=== PATIENT | male | born 1990 | race Caucasian/White ===

== ENCOUNTER 2024-11-06 18:02 | Emergency (ER) | payer BC, SELFPAY ==
--- NOTE | ~2024-11-06 | XR_ITS ---
CLINICAL HISTORY: lac to left hand 3rd digit 3 view left 3rd digit Comparison: None Findings: Laceration of the tip of the 3rd digit. Bones intact. No dislocations. No erosions. No radiopaque foreign body. IMPRESSION: 1. No acute fracture or radiopaque foreign body. This document has been electronically signed by: Kat Whiting MD on 11/06/2024 18:46:42
[2024-11-06 18:04] VITALS: BP 114/62; PULSE 63; RESP 18; TEMP 36.6; O2SAT 99; BMI 27.4
--- NOTE | 2024-11-06 20:18 | ED_ITS ---
HPI - Wound/Laceration General Chief Complaint: Wound/Laceration Stated Complaint: L hand middle finger lac Time Seen by Provider: 11/06/24 22:34 History of Present Illness ED Provider: Mayra SHARP narrative: The patient is a 34-year-old male who was slicing potatoes with a mandoline slicer this afternoon at around 16:00 when he accidentally sliced off the tip of the pad of his left middle finger. There has been persistent bleeding and he came to the emergency room. Related Data Allergies Allergy/AdvReac Type Severity Reaction Status Date / Time Penicillins [PCN] Allergy Unknown THROAT Unverified 11/06/24 18:18 CLOSES UP Review of Systems Review of Systems: Yes all other systems are reviewed and are negative PMFSH Social History Social History Advance Directives: No Advance Directives Information Provided: No Physical Exam Vital Signs: Vital Signs: Last Vital Signs Temp 98.2 F 11/06/24 23:48 Pulse 74 11/06/24 23:48 Resp 16 11/06/24 23:48 BP 116/72 11/06/24 23:48 Pulse Ox 96 11/06/24 23:48 O2 Del Method Room Air 11/06/24 23:48 BMI result Body Mass Index 27.4 Const: Other: The patient is awake and alert. He does not appear in acute distress. HEENT: Other: The face is unremarkable. Face is symmetrical. Mucous membranes moist. Eyes: General: appearance normal, both eyes and all related structures Neck: Neck: Yes normal visual inspection and Yes full ROM Resp: Effort & Inspection: normal respiratory effort Skin: Other: The patient has an injury to the pad of the distal left middle finger. The injury has the appearance of an avulsion of the skin. There was some oozing of blood. The area of the injury is less than 1 sq cm. Neuro: Other: The patient is awake and alert with a normal mental status. He has normal sensation and motor function of the left hand. Extrem: Other: There is a skin avulsion injury to the pad of the left distal middle finger which is oozing blood. The fingernail is not involved. Motor and sensory function of the finger is normal. The finger is neurovascularly intact Course Course Course Narrative: This is a Rapid Medical Examination (RME) performed by Ariana Foy PA-C in triage. Full HPI, ROS, assessment and treatment plan per primary provider in the Main ED. Hx: 34 yo male here for eval of laceration to left 3rd digit sustained while cutting potatos using a mandolin cutter. no thinners. unsure of tetanus status. PE/vitals: avulsion injury to tip of left third digit. wrapped in triage. Plan: xrs, tdap, ?repair Medications Administered Discontinued Medications Generic Name Dose Route Start Last Admin Trade Name Lay PRN Reason Stop Dose Admin Acetaminophen 975 mg 11/06/24 23:03 11/06/24 23:29 Acetaminophen 325 Mg Tablet PO 11/06/24 23:04 975 mg ONCE ONE Administration Ibuprofen 600 mg 11/06/24 23:03 11/06/24 23:30 Ibuprofen 600 Mg Tablet PO 11/06/24 23:04 600 mg ONCE ONE Administration Medical Decision Making Medical Decision Making [facility] Narrative: The patient is a 34-year-old male who sustained an injury to the tip of his left middle finger when slicing food with a mandoline food slicer. The area of the avulsed skin is close to but probably slightly less than 1 sq cm. As these wounds typically do the wound was continuously oozing blood. In order to achieve hemostasis I applied a finger tourniquet and cleaned the wound. I then applied Surgicel gauze to the tip of the finger. Over this I applied a nonstick pad and then wrapped the finger with gauze for a dressing. The finger tourniquet was kept on for about 10 minutes after application of the dressing. The patient was observed for about 20-30 minutes additionally. There was no evidence of bleeding through the dressing. The patient will be discharged with instructions to contact Orthopedics for evaluation by the hand surgery clinic. Wound care instructions were reviewed with the patient. Procedure note: Procedure indication: Bleeding control for fingertip avulsion injury Procedure details: The patient is left middle finger was examined. There was a dressing in place that was taken down. This revealed an avulsion type injury to the pad of the left distal finger with oozing blood. A finger tourniquet was applied over the wound to the base of the finger. This provided good hemostasis. I was then able to clean off the dried skin around the wound and the wound itself with saline and gauze. I then applied a Surgicel dressing to the wound. This was covered with a nonstick pad and wrapped with a gauze. The finger tourniquet was kept on about 10-15 minutes after the dressing was placed. The finger tourniquet was then removed. The patient was then observed for 20 minutes with his hand elevated. There was no evidence of bleeding through the dressing. The patient tolerated the procedure well. Complications: None Discharge Plan Discharge Clinical Impression: Avulsion of fingertip Patient Disposition: Home, Self-Care Instructions: Skin Avulsion (ED) Additional Instructions: I would recommend keeping the current dressing in place for the next couple of days. Please call the orthopedic office tomorrow morning to see if you can get in for a wound check and further recommendations by the hand surgeon. Keep the hand elevated tonight to help reduce the risk of rebleeding. You may use ibuprofen and acetaminophen as needed for discomfort. You may change the outer gauze and the nonstick pads as needed. If you have trouble getting in to see the hand surgery office after 3 or 4 days you can try to soak off the specialized anticoagulant dressing at home and very cold water. If you try this at home please do it very slowly and gently to reduce the risk of rebleeding. If you successfully remove all of the dressing and there was no bleeding I would apply bacitracin or other topical antibiotic ointment with Band-Aids for several days. If you have any rebleeding or any other problems please return to the emergency room for re-evaluation. Referrals: [facility] Orthopedic Surgeons [Provider Group] (Fingertip avulsion injury from mandolin food slicer) Interventions: ED Discharge Assessment Last Done: 11/06/24 23:48 Discharge Date/Time: 11/06/24 23:48 Print Language: Lithuanian
[2024-11-06 21:06] VITALS: BP 111/59; PULSE 55; RESP 16; TEMP 36.9; O2SAT 100
[2024-11-06 22:45] VITALS: BP 116/72; PULSE 74; RESP 16; TEMP 36.8; O2SAT 96
[2024-11-06] MEDS: Acetaminophen 325 MG TABLET 975 MG PO (23:29)
[2024-11-06] MEDS: Ibuprofen 600 MG TABLET PO (23:30)
[2024-11-06 23:48] VITALS: BP 116/72; PULSE 74; RESP 16; TEMP 36.8; O2SAT 96
== END 2024-11-06 23:48 | disposition home or self-care (01) ==
PROVIDERS: Emergency Provider Emergency Medicine
DX: S61.313A Laceration without foreign body of left middle finger with damage to nail, initial encounter (principal); W26.8XXA Contact with other sharp object(s), not elsewhere classified, initial encounter; Y93.9 Activity, unspecified; Y92.9 Unspecified place or not applicable; Y99.9 Unspecified external cause status
CPT/HCPCS: 73140; 99283

== ENCOUNTER → 2024-11-06 18:25 | Outpatient (BNV) | payer BC, SELFPAY | PROVIDERS: Visit Provider Radiology Diagnostic Radiology | DX: S61.213A Laceration without foreign body of left middle finger without damage to nail, initial encounter (principal) | CPT/HCPCS: 73140 ==

== ENCOUNTER 2024-11-11 08:14 | Outpatient (AMB) | payer BC, SELFPAY ==
[2024-11-11 08:16] VITALS: BMI 27.4
--- NOTE | 2024-11-11 08:16 | A.OFFVIS_ITS ---
Vital Signs 11/11/24 08:16 Height 6 ft 3 in Weight 219 lb BMI 27.4 Intake Visit Reasons: FC - Left Middle Finger Lac 11/06/24 Intake Note: Lew is a 34 year old right hand dominant male who presents today for a fracture care visit for his Left Middle Finger. Patient reports he was using a Mandolin to slice potatoes when he sliced the pad of his left middle finger off. He was seen at [facility] after the injury where a dressing was placed and he was instructed to keep it intact for at least 3-4 days. Today, patient denies numbness, tingling, finger locking. Denies prior injuries or surgeries to the left hand. Bandage minimally saturated with blood. Allergies Penicillins [PCN] Allergy (Unknown, Unverified 11/11/24 08:16) THROAT CLOSES UP HPI HPI FC - Left Middle Finger Lac 11/06/24: Details: Lew is a 34 year old right hand dominant male who presents today for a laceration of his Left Middle Finger. Patient reports he was using a Mandolin to slice potatoes when he sliced the pad of his left middle finger off. He was seen at [facility] after the injury where a dressing was placed and he was instructed to keep it intact for at least 3-4 days. Today, patient denies numbness, tingling, finger locking. Denies prior injuries or surgeries to the left hand. Bandage minimally saturated with blood. [facility] Social History (Updated 11/11/24 @ 08:24 by KEEGAN Rao) Current occupation: rt handed Review of Systems Const All systems reviewed & are unremarkable except as noted in HPI and below Physical Exam Vital Signs: BMI result Body Mass Index 27.4 Extrem Other: Patient is alert, oriented, and in no acute distress. Neuro: Normal sensation of the tips of all other digits of the left hand at this time Vascular: Cap refill brisk Pain: No pain with range of motion of the left hand ROM: Patient is able to make a closed fist and extend all digits of the left hand fully and without difficulty Skin: There is a round, approximately 2-3 cm in circumference wound noted on the pad of the left middle finger No active discharge at this time General: No ecchymosis, erythema, or evidence of infection. Psych: Appears grossly normal Affect normal Attitude cooperative Assessment & Plan Assessment & Plan (1) Laceration of left middle finger w/o foreign body w/o damage to nail: Code(s): S61.213A - Laceration without foreign body of left middle finger without damage to nail, initial encounter Category: Medical Plan 1. Laceration of pad of left middle finger Date of injury 11/06/2024 Patient is educated about this injury Patient is educated about the typical recovery course At this time, there is no evidence for any ongoing infection, so patient will require no further antibiotic therapy Patient was educated on daily dressing changes into keep the wound site and dressing clean, dry, intact Patient was amenable to this plan Patient will follow-up in 1 week for wound check, sooner with any acute concerns Coding Level of Care Code Tele New Pt Level 3 (72897) Diagnoses Laceration of left middle finger w/o foreign body w/o damage to nail S61.213A
== END 2024-11-11 09:22 | disposition home or self-care (01) ==
LOC: HO.HOS 08:14
DX: S61.213A Laceration without foreign body of left middle finger without damage to nail, initial encounter (principal)
CPT/HCPCS: 99203

== ENCOUNTER 2024-11-18 08:23 | Outpatient (AMB) | payer BC, SELFPAY ==
[2024-11-18 08:31] VITALS: BMI 27.4
--- NOTE | 2024-11-18 08:31 | A.OFFVIS_ITS ---
Vital Signs 11/18/24 08:31 Height 6 ft 3 in Weight 219 lb BMI 27.4 Intake Visit Reasons: OV- Left MF Lac 11/06/24, wound check Intake Note: Lew is a 34 year old right hand dominant male who presents today for a wound check status post left middle finger laceration, DOI: 10/17/24. Patient reports he is doing well. Denies numbness or tingling. Denies any pain at this t gabriele. Patient reports he has continued changing his dressing daily. Allergies Penicillins [PCN] Allergy (Unknown, Unverified 11/11/24 08:16) THROAT CLOSES UP [facility] Social History (Updated 11/11/24 @ 08:24 by KEEGAN Rao) Current occupation: rt handed Physical Exam Vital Signs: BMI result Body Mass Index 27.4 Assessment & Plan Assessment & Plan (1) Laceration of left middle finger w/o foreign body w/o damage to nail: Code(s): S61.213A - Laceration without foreign body of left middle finger without damage to nail, initial encounter Category: Medical Plan History of Present Illness The patient is a 34-year-old male presenting with an avulsion wound on his left middle finger. The avulsion wound has evolved with the formation of granulation tissue, indicating healing progress. He reports this is the first occasion of feeling pain in the affected area. The patient has not noticed any discharge or signs of infection. He has adhered to care strategies by avoiding soaking the wound, maintaining hygiene through gentle cleansing without full water immersion, and conducting dressing changes approximately every two days. Review of Systems - Integumentary: Denies discharge; no redness, aligned coloration with healing. Systems reviewed and are negative except as per HPI and below Physical Exam - Integumentary- Finger shows granulation tissue formation, no discharge observed, indicates appropriate healing progression. Plan The patient should continue managing the avulsion wound with proper preventative measures to avoid water exposure, thus decreasing infection risk. I recommended altering the wound dressing daily, as opposed to every two days, and applying antibiotic ointment. No oral antibiotics were deemed necessary unless subsequent symptoms of infection arise. Follow-up is arranged to evaluate healing and potentially allow a return to washing the area more freely in one to two weeks. Patient was informed and verbally consented to the use of an ambient scribe for clinic note documentation during this visit. Discussion Notes I explained to the patient the current status of the avulsion wound, noting positive signs of granulation tissue indicating healing. I advised abstaining from washing the wound directly with water to avoid potential infection and recommended daily dressing changes with the application of antibiotic ointment. The patient was informed that no antibiotics are necessary unless signs of in fection emerge. I provided precautions regarding avoidances such as hot tubs, pools, and prolonged water exposure. Follow-up is planned in one to two weeks to reassess and determine readiness for additional hygiene measures. Patient Instructions - Avoid soaking the wound in water, such as in showers, pools, or while doing dishes. - Perform daily dressing changes. - Apply a small amount of antibiotic ointment with each dressing change. - Monitor for increased redness, swelling, pain, or discharge and contact if these occur. - Attend follow-up in one to two weeks for reassessment. Coding Level of Care Code Est Pt Level 3 (16671) Diagnoses Laceration of left middle finger w/o foreign body w/o damage to nail S61.213A
--- OUTSIDE RECORDS SUMMARY | 2024-11-18 08:38 | XMS_ITS | Referral Summary ---
Author Organization [facility] Address [address] [place] [address] Care Team Providers Care Senior Java Software Engineer Name Role Phone Wayne Salazar MD Primary Care Provider [phone] Allergies Active Allergy Reactions Criticality Noted Date Comments Penicillins Anaphylaxis High 02/28/2019 Medications cyclobenzaprine (FLEXERIL) 10 mg tablet 05/13/2023 Active Active Problems Problem Noted Date Diagnosed Date Chronic lower back pain 05/09/2022 Hammer toes of both feet 05/09/2022 Scoliosis concern 05/09/2022 Chronic pain of toes of both feet 05/09/2022 Myopia of both eyes with astigmatism 03/14/2019 Obesity with body mass index greater than 30 Callus of foot 02/28/2019 Immunizations Immunization Administration Dates Next Due Influenza, Injectable, Quadr ivalent, Contains Preservative 05/15/2023 Tetanus Toxoid, Reduced Diph theria Toxoid, and Acellular Pertussis Vaccine, Adsorbed 05/09/2022 Social History Tobacco Use Types Packs/Day Years Used Date Smoking Tobacco: Light Smoker Cigarettes Passive Smoke Exposure: Current Smokeless Tobacco: Former Tobacco Cessation:Ready to Q uit: Not Asked; Counseling Given: Not Answered Comments:former 1 pack per day VAPING CURRENTLY Transportation Answer Date Recorded Please ernie the areas for ich the patient would like information or assistance: None Apply 05/15/2023 Lack of Transportation (Medical) Not on file 05/15/2023 Housing Stability Answer Date Recorded Please ernie the areas for ich the patient would like information or assistance: None Apply 05/15/2023 Unable to Pay for Housing in the Last Year Not o n file 05/15/2023 Last EPDS Total Score Not on file 05/15/2023 Unstable Housing in the Last Year Not on file 05/15/2023 Sex and Gender Information Value Date Recorded Sex Assigned at Male 02/15/2022 7:52 PM EDT Legal Sex Male 1:51 AM EDT Gender Identity Male 02/15/2022 7:52 PM EDT Sexual Orientation Straight 02/15/2022 7: 52 PM EDT Last Filed Vital Signs Vital Sign Reading Time Taken Comments Blood Pressure 116/58 05/15/2023 11:14 AM EDT Pulse 88 05/15/2023 11:14 AM EDT Temperature - - Respiratory Rate - - Oxygen Saturation 100% 05/15/2023 11:14 AM EDT Inhaled Oxygen Concentration - - Weight 97.5 kg (215 lb) 05/15/2023 11:14 AM EDT Height 186 cm (6' 1.23 ) 05/15/2023 11:14 AM EDT Body Mass Index 28.19 05/15/2023 11:14 AM EDT Plan of Treatment Not on file Care Teams Senior Java Software Engineer Relationship Specialty Start Date End Date Wayne Salazar MD [address] [place] [phone] PCP - General Internal Medicine 02/28/19
--- OUTSIDE RECORDS SUMMARY | 2024-11-18 08:38 | XMS_ITS | Clinical Summary ---
Author Organization [facility] Address [address] [place] [address] Care Team Providers Care Building Admin Name Role Phone Wayne Salazar MD Primary Care Provider [phone] Allergies Active Allergy Reactions Criticality Noted Date [...] Toxoid, and Acellular Pertussis Vaccine, Adsorbed 05/09/2022 Family History Medical History Relation Name Comments No Known Problems Father Cancer Maternal Grandfather Hypertension Maternal Grandfather No Known Problems Mother Blindness Neg Hx Diabetes Neg Hx Glaucoma Neg Hx Relation Name Status Comments Father Maternal Grandfather Mother Social History Tobacco Use Types Packs/Day Years Used Date Smoking Tobacco: Light Smoker Cigarettes Passive Smoke Exposure: Current Smokeless Tobacco: Former Tobacco Cessation:Ready to Q uit: Not Asked; Counseling Given: Not Answered Comments:former 1 pack per day VAPING CURRENTLY Transportation Answer Date Recorded Please ernie the areas for wh ich the patient would like information or assistance: None Apply 05/15/2023 Lack of Transportation (Medical) Not on file 05/15/2023 Housing Stability Answer Date Recorded Please ernie the areas for wh ich the patient would like information or [...] 05/15/2023 11:14 AM EDT Plan of Treatment Health Maintenance Due Date Last Done Comments Hepatitis C Screening 1991 Varicella Vaccines (1 of 2 - 13+ 2-dose series) 2003 Hepatitis B Vaccines (1 of 3 - 19+ 3-dose series) 02/14 Pneumococcal Vaccine: Pediat nacho (0-5 Years) and At-Risk Patients (6-50 Years) (1 of 2 - PCV) 2010 COVID-19 Vaccine ( - season) 2024 Alcohol/Substance Use Screening 08/17/2024 Depression Screening and Follow-Up 08/17/20242022 Social Drivers of Health Annual Screening 08/17/2024 Influenza Vaccine (Season Ended) 2025 05/15/20 23 DTaP,Tdap,and Td Vaccines (2 - Td or Tdap) 05/09/2032 05/09/2022 RSV Vaccine (60+ years old a nd patients) (1 - 1-dose 75+ series) 2066 HIV Screening Completed 02/28/2019 Care Teams Building Admin Relationship Specialty Start Date End Date Wayne Salazar MD [address] [place] [phone] PCP - General Internal Medicine 02/28/19
== END 2024-11-18 09:08 | disposition home or self-care (01) ==
LOC: HO.HOS 08:23
DX: S61.213A Laceration without foreign body of left middle finger without damage to nail, initial encounter (principal)
CPT/HCPCS: 99213